=== PATIENT | male | born 1950 | race Caucasian/White ===

== ENCOUNTER → 2019-08-13 09:49 | Outpatient (CLI) | payer MEDICARE, OTHER, SELFPAY ==
[2019-08-13 10:21] LABS: Bacteria Urine None Seen; RBC Urine None Seen (0-5/HPF); WBC Urine None Seen (0-5/HPF)
[2019-08-13 11:23] LABS: Hemoglobin A1C% w Est Avg Glu 5.6 % (4.0-6.0)
[2019-08-13 11:24] LABS: Add Manual Diff / Slide Review NO; Basophils Absolute Auto 100 /uL (0-100); Basophils Percent Auto 0.9 % (0-2); Eosinophils Absolute Auto 200 /uL (0-450); Eosinophils Percent Auto 3.5 % (2-4); Hemoglobin 14.4 g/dL (13.5-17.5); Lymphocytes Absolute Auto 1700 /uL (1100-4500); Lymphocytes Percent Auto 28.7 % (25-40); Mean Corpuscular HGB Conc 34.2 % (30-36); Mean Corpuscular Volume 90.7 fL (80-100); Monocytes Absolute Auto 700 /uL (0-900); Neutrophils Absolute Auto 3300 /uL (1500-7000); Neutrophils Percent Auto 55.9 % (50-75); Platelet Count 253 X10^3/uL (150-400); Red Blood Cell Count 4.63 X10^6/uL (4.5-5.9); Red Cell Distribution Width 12.8 % (11.6-14.8); White Blood Cell Count 5.9 X10^3/uL (4.5-11.0)
[2019-08-13 11:35] LABS: BUN Creatinine Ratio 23.3 (6-22); Blood Urea Nitrogen 21 mg/dL (9-20); Calcium 10.2 mg/dL (8.4-10.2); Carbon Dioxide 29 mmol/L (22-32); Chloride 98 mmol/L (98-107); Estimated Glomerular Filt Rate > 60.0 mL/min (>60); Glucose 124 mg/dL (80-110); HEMOLYSIS < 15 (0-50); Potassium 5.2 mmol/L (3.4-5.1); Sodium 139 mmol/L (137-145)
[2019-08-13 12:10] LABS: Transferrin 313 mg/dL (206-381)
[2019-08-13 12:32] LABS: Appearance Urine UA CLEAR; Bilirubin Urine UA NEGATIVE (NEGATIVE); Color Urine UA YELLOW; Glucose Urine UA NEGATIVE (Negative); Ketones Urine UA NEGATIVE (NEGATIVE); Leukocyte Esterase Urine UA NEGATIVE (NEGATIVE); Nitrite Urine UA NEGATIVE (Negative); Occult Blood Urine UA NEGATIVE (Negative); Protein Urine UA NEGATIVE (Negative); Specific Gravity Urine UA <=1.005 (1.000-1.035); Urobilinogen Urine UA 0.2 E.U./dL (0.2)
[2019-08-13 12:38] LABS: Squamous Epithelial Cell Urine 0-1 /HPF (0-5/HPF)
[2019-08-13 12:39] LABS: Culture Indicated Urine Cult Not Indicated
== END ==
PROVIDERS: PCP Internal Medicine; Referring Provider Orthopaedic Surgery; Visit Provider Orthopaedic Surgery
DX: Z01.818 Encounter for other preprocedural examination (principal); Z01.812 Encounter for preprocedural laboratory examination; R73.9 Hyperglycemia, unspecified; N39.0 Urinary tract infection, site not specified; D64.9 Anemia, unspecified
CPT/HCPCS: 36415; 80048; 81001; 83036; 84466; 85025; 93005

== ENCOUNTER 2019-09-20 08:36 | Day surgery (SDC) | payer MEDICARE, OTHER, SELFPAY ==
[2019-09-14 09:46] VITALS: BMI 29.8
[2019-09-20] VITALS (12 sets, daily range): BP systolic 113–168; BP diastolic 57–90; PULSE 67–88; RESP 10–18; TEMP 36.1–37.1; O2SAT 91–99; BMI 29.8
--- NOTE | 2019-09-20 06:00 | DI.RAD.S_ITS ---
PROCEDURE: XR KNEE RT 1TO2V INDICATIONS: right TKA TECHNIQUE: 2 views of the knee were acquired. COMPARISON: None. FINDINGS: Bones: No fractures or dislocations. No suspicious bony lesions. Status post right total knee arthroplasty. Expected hardware alignment. Soft tissues: Overlying postoperative surgical soft tissue changes. IMPRESSION: Expected postoperative alignment. Dictated by: Justice Mejía M.D. on 09/20/2019 at 16:55 Approved by: Justice Mejía M.D. on 09/20/2019 at 16:56
[2019-09-20] MEDS: CELECOXIB 200 MG CAPSULE PO (09:16)
[2019-09-20] MEDS: ACETAMINOPHEN 325 MG TABLET 975 MG PO (09:16)
[2019-09-20] MEDS: PREGABALIN 75 MG CAPSULE PO (09:16)
[2019-09-20] MEDS: LACTATED RINGERS 1,000 ML 42 ML IV ×2 (09:21→11:21)
--- NOTE | 2019-09-20 09:38 | PM.PREOP ---
Pre-operative Note Interval Note History & Physical reviewed/Exam performed by Physician: Yes Changes to H&P: No
--- NOTE | 2019-09-20 09:38 | PM.OP.1 ---
Operative Date/Time/Diagnoses Date of procedure: 09/20/19 Time of procedure: 12:10 Pre-op diagnosis: Right knee osteoarthritis Post-op diagnosis: same Procedure & Clinicians Procedure: Right total knee replacement Same procedure as scheduled: Yes Indications: The patient has had progressively worsening right knee pain with radiographic changes consistent with arthritis. Non-operative management has failed and the patient has requested total knee replacement. The risks, benefits and alternatives to surgery were discussed with the patient prior to proceeding. Risks discussed included, but were not limited to, failure to relieve pain, stiffness, infection, nerve damage, deep venous thrombosis, pulmonary embolism, stroke, coma, heart attack, permanent paralysis and , as well as the potential need for eventual revision of the prosthetic. Surgeon: Stevie Duncan Router Operator Radial: Saurav Fontenot Click Yes if Unassisted: No Anesthesia Type: Spinal, Sedation and Local Operative Notes Findings: Severe patellofemoral osteoarthritis and moderate medial lateral osteoarthritis Closure Type: primary Specimen(s): none sent Prosthetic devices, grafts, tissues, transplants, or devices: Implants used in this procedure were manufactured by the [employer] and included the BCS II Journey total knee replacement with a size 8 Oxinium femur, a size 7 non porous tibial base plate, a 9 mm cross-linked polyethylene tibial insert and a 38 mm oval Joan II patella Applied: implant(s) Estimated Blood Loss (mL): 50 Blood products transfused: none Tourniquet time (min): 60 Procedure in detail: The patient was seen in the pre-operative area, where the patient identified the right knee as the operative site and this was marked with my initials. The patient received pre-operative antibiotics, and was taken to the operating room and placed on the operative table in the supine position. After satisfactory anesthesia, a encyclopedia research worker out was performed. The right leg was encircled with a tourniquet about the proximal thigh, and the leg was prepared from the toes to the tourniquet with ChloroPrep in the usual fashion and draped through sterile drapes. The leg was elevated and exsanguinated with Eschmark bandage and the tourniquet inflated to 250 mmHg pressure. The knee was approached through an approximately 18 cm incision centered over the patella and carried into the knee through a medial parapatellar arthrotomy. The anterior osteophytes and soft tissues were removed. The rotational landmarks of Pillo's line and the transepicondylar axis were marked on the femur with electrocautery, and intramedullary guide holes for the femur and tibia were created. The distal femoral cut was made in 6 degrees of valgus using the intramedullary guide at the primary cut setting. The proximal tibial cut was then made using the intramedullary guide, taking 9 mm of bone off the less involved side. The extension gap was checked and the rotation of the femoral component confirmed with the gap balancing system. The anterior, posterior and chamfer cuts were then made. The posterior osteophytes and soft tissues were then removed. The posterior capsule was injected with part of a mixture of 60 ml 0.25% Marcaine mixed with 20 ml Exparel and 4 mg of morphine for post-operative pain control. The remainder of this mixture was injected into the capsule and subcutaneous tissues during cement curing. The tibia was prepared with the rotation set by an extra medullary guide. Trial tibial and femoral components were then placed and the intercondylar notch cut through the femoral trial. Range of motion was 0-140 degrees, with good stability throughout the range. The patella was then cut to accommodate the patellar prosthetic. There was appropriate patellar tracking, however the patient had significant lateral wear in the patellofemoral joint preoperatively and a tendency to lateral tilt of the patella so I performed a ?pie crust? lateral release. The trials were then removed, and the femoral hole plugged with a bone plug. The bone was prepared with pulsatile lavage, and dried with a sponge. Cement was applied and the final prosthetics placed. Excess cement was removed during and after cement curing. After confirming there was no extruded cement posteriorly, the final tibial insert was placed. The knee was copiously irrigated and the tourniquet deflated. Hemostasis was obtained. The capsule was closed with interrupted # 2 polyester suture. The subcutaneous layer was closed with 3-0 Vicryl, and the skin with a running 3-0 V-Lock suture and SteriStrips. An Aquacel Ag dressing was applied and the patient was taken to recovery having tolerated the procedure well. Complications: none Post-operative Condition: stable Disposition: PACU Plan for aftercare: The patient will be maintained on a standard total knee replacement protocol with weight bearing as tolerated. The patient will receive aspirin and sequential compression devices for DVT prophylaxis. The patient will be discharged home when safe for the home environment.
[2019-09-20] MEDS: CEFAZOLIN 2 GM/100 ML FROZ.PIGGY IV (10:13)
[2019-09-20] MEDS: TRANEXAMIC ACID 1,000 MG VIAL 2000 MG INJ ×2 (10:38→11:50)
--- NOTE | 2019-09-20 10:49 | SUR.OPER ---
Supine on padded OR bed. Pillow under head, arms secured on padded armboards <90 degree abduction. Safety belt across torso. Non-operative leg secured with tape over blanket over lower leg. Operative leg secured in DeMayo positioner.
[2019-09-20] MEDS: BUPIVACAINE 0.25% W/ EPI 30 ML VIAL 60 ML INJ (10:54)
[2019-09-20] MEDS: MORPHINE 4 MG/ML INJ INJ (10:57)
[2019-09-20] MEDS: BUPIVACAINE LIPOSOME 266 MG/20 ML VIAL INJ (11:30)
--- NOTE | 2019-09-20 12:27 | SUR.PHASEI ---
X-ray here, report given to Jose Carlos West RN. Pt arousing spontaneously, denies pain, nausea.
[2019-09-20] MEDS: LACTATED RINGERS 1,000 ML 125 ML IV (13:22)
[2019-09-20] MEDS: IBUPROFEN 400 MG TABLET PO ×2 (15:36→21:55)
[2019-09-20] MEDS: ACETAMINOPHEN 325 MG TABLET 650 MG PO ×2 (15:36→21:53)
--- NOTE | 2019-09-20 15:58 | PT.IIE ---
Current Diagnoses Unilateral primary osteoarthritis, right knee (09/20/19) Surgery Performed Operation Date: 09/20/19 10:45 Actual Procedures p Total Knee Arthroplasty(Right) - Stevie Duncan MD Surgical History (Last Updated 09/14/19 @ 10:09 by Lee Ann Sun, RN) History of nasal surgery (Acute) Hx of arthroscopy of left knee (Acute) Hx of LASIK (Acute) Hx of repair of left rotator cuff (Acute) Medical History (Last Updated 09/16/19 @ 13:41 by Lee Ann Sun RN) Actinic keratosis (Acute) HTN (hypertension) (Acute) Osteoarthritis (Acute) Skin cancer (Acute) Physical Therapy Inpatient Evaluation/Re-Eval M1 PT/OT-IP Prior Functional Status Start: 09/20/19 13:46 Freq: NEEDED Status: Active Protocol: Document 09/20/19 14:57 AW (Rec: 09/20/19 15:57 AW [id number]) Medical Review Prior Functional Status Medical History Reviewed Yes Diet/Fluid Consistency Regular Communication Pt is an effective verbal communicator Mobility and Gait Independent with all functional mobility. With a knee brace, he could walk without limit, often tracking [phone] steps daily on his Fitbit. Activities of Daily Living and IADL's Independent except for donning socks for which he required his 's assistance Social History Household Members spouse Living Arrangements House Number of Floors (Floors) 3 or More Floors Number of Stairs To Enter/Railing? 4 [place] with left rail ascending . Once inside, he must ascend 8+8 stairs with unilateral rails. Bedroom is upstairs, but pt states he can stay on entry level buyer for a few days if needed. He has no need to access the basement on a regular basis. Home Environment Standard Height Toilet,Walk in Shower,Built-In Shower Seat Home Equipment Front Wheel Walker,Straight Cane,Raised Toilet Seat Without Armrests,Hand Held Shower Employment Status Retired Additional Social History Comment Pt lives with his spouse, Shayna, who is also retired. She is available 27/01 and has no limitations on her ability to help. M2 PT-IP Current Condition Start: 09/20/19 13:46 Freq: NEEDED Status: Active Protocol: Document 09/20/19 14:57 AW (Rec: 09/20/19 15:57 AW [id number]) Physical Therapy Current Condition Current Condition Evaluation Date 09/20/19 Treatment Diagnosis R TKA Onset Date 09/20/19 Weight Bearing Status Weight Bearing Status Weight Bear as Tolerated M3 PT-IP Subjective Start: 09/20/19 13:46 Freq: NEEDED Status: Active Protocol: Document 09/20/19 14:57 AW (Rec: 09/20/19 15:57 AW [id number]) Subjective Physical Therapy Visit Type Type Initial Evaluation Visit Start Time 14:22 Visit Stop Time 14:52 Total Visit Minutes 30 Notes Pt's present throughout evaluation Physical Therapy Visit Comments Patient Comments Pt is willing to participate with PT Patient Goals To go home Therapy Pain Assessment Pain When Pain Assessed At Rest Pain Present Pain Present Denied Pain M4 PT-IP Mobility and Gait Start: 09/20/19 13:46 Freq: NEEDED Status: Active Protocol: Document 09/20/19 14:57 AW (Rec: 09/20/19 15:57 AW [id number]) PT-Bed Mobility Assessment Rolling Type of Rolling Roll to Left Level of Assist Standby Assistance Supine to Sit Supine to Sit Standby Assistance Scooting Scooting to Edge of Bed Standby Assistance Scooting Up and Down in Bed Standby Assistance PT-Transfer Assessment Sit to and From Stand Sit to and from Stand Contact Guard Assistance,1 Person Assistance,Use of Upper Extremities Equipment Transfer Assistive Device Gait Belt,Front Wheeled Walker Orthotic/Prosthetic Devices or Brace: No Transfers Transfer Destination Chair Transfer Technique pt ambulated with fww Transfer Ability Level of Assist Standby Assistance,1 Person Assistance,Use of Upper Extremities Comments Mobility Comments Pt sitting up in bed upon PT arrival with no complaint of pain. He completed supine to sit SBA and sat EOB for MMT without UE support. He stood using the FWW SBA and cues for placement of the right leg. After gait assessment, pt returned to the room and attempted to use the toilet but was unable to void, lacking sensation. He then transferred to the chair SBA. He was positioned in the chair with call light and all needs within reach and his visiting in the room. Gait Assessment Gait Gait Assistance Required: Standby Assistance Distance (Feet) 120 Able to Maintain Weight Bearing Status Yes During Gait Assistive Devices Assistive Device Gait Belt,Front Wheeled Walker Orthotic/Prosthetic Devices or Brace: No Gait Deviations General Gait Pattern Antalgic,Decreased Stride Length,Decreased Feet Clearance,Step-to Gait Comments Gait Comments Pt ambulated 120 feet in the hallway using FWW SBA. He experienced a slight increase in pain during gait but did not increase his weightbearing through the FWW. He was somewhat impulsive, needing cues to keep the walker with him until able to contact the railing on the stairs, for instance. Stair Climbing Assessment Evaluation Level of Assist On Stairs Standby Assistance Devices Stair Climbing Assistive Devices Left Railing,Right Railing Technique/Endurance Stair Climbing Direction Ascend and Descend Stair Climbing Technique Step to Step Number of Steps Climbed 3 Query Text: Stair Climbing Set # Repetitions (reps) 2 Comments Stair Climbing Comments Pt sequenced stair climbing appropriately with mininal need for cues. Used B rails this session. Will need to assess with unilateral rail tomorrow. PT-Balance Assessment Sitting Balance and Reactions Static Sitting Balance Ability Normal Dynamic Sitting Balance Ability Normal Standing Balance and Reactions Static Standing Balance Ability Good Dynamic Standing Balance Ability Good Device Used FWW M5 PT-IP Objective Assessments Start: 09/20/19 13:46 Freq: NEEDED Status: Active Protocol: Document 09/20/19 14:57 AW (Rec: 09/20/19 15:57 AW [id number]) Orientation Orientation/Cognition Level of Alertness Alert Orientation Name,Day of Week,Place, Situation Language Function Ability No Deficits Noted Safety Awareness Decreased Safety Awareness Memory Description No Deficits Noted Comments Pt required cues for focus and safety with FWW during ambulation. Gross Range of Motion Lower Extremity ROM Assessment Right Impaired Strength Lower Extremity Strength Assessment Right Impaired Hip L 4+/5 Knee L 5/5 Ankle L 5/5; R 4/5 Coordination Assessment Gross Coordination Gross Coordination WNL Sensation Assessment Sensation Gross Sensation WNL Comments Sensation Comments Impaired sensation in saddle region at time of evaluation. Muscle Tone Muscle Tone WNL Yes M6 PT-IP Treatment Start: 09/20/19 13:46 Freq: NEEDED Status: Active Protocol: Document 09/20/19 14:57 AW (Rec: 09/20/19 15:57 AW [id number]) Physical Therapy Treatment Exercises Exercises Ankle Pumps,Quad Sets,Heel Slides,Passive Knee Extension Hang Education Education Provided Precautions,Weight Bearing Status,Post-Op Packet,Safety Other Treatments Other Treatment Performed Provided education on role of PT, plan of care, weightbearing status, and safe use of FWW. M7 PT-IP Assessment and Plan Start: 09/20/19 13:46 Freq: NEEDED Status: Active Protocol: Document 09/20/19 14:57 AW (Rec: 09/20/19 15:57 AW [id number]) PT Summary Assessment and Plan Potential Rehabilitation Potential Excellent Status of Condition at Evaluation Evolving Summary Impairments Pain,ROM,Strength,Bed Mobility ,Transfers,Gait,Activity Tolerance Assessment Summary Dylan is a 69 yo man seen for PT evaluation on POD0 following R TKA. He is fully independent with all mobility at baseline. On evaluation, he required SBA for mobility and cues for safety during ambulation with FWW. PT anticipates he will meet the goals of this plan of care and be safe to discharge home with spouse assist and outpatient PT once medically cleared. Pt was advised to continue using FWW at least until first outpatient PT appointment. Goals Bed Mobility Goal Independent Transfer Goal Independent,Front Wheeled Walker Gait Goal Independent,Front Wheel Walker Gait Distance 220 Other Goals - up/down 8 steps with unilateral rail SBA Days to Meet Goals 2 Frequency of Treatment Frequency Of Treatment Twice a Day Treatment Plan Physical Therapy Treatment Plan Bed Mobility Training,Transfer Training,Gait Training, Therapeutic Exercise,Balance Retraining,Post Op Education, Discharge Planning,Hot or Cold Pack,Neuromuscular Re-ed, Coordination Retraining,Manual Therapy Other Recommendations and Next Treatment review ther ex; progress gait Focus distance; assess stair climbing with unilateral rail Recommendations To Nursing Amount of Assist Needed Standby Assistance Discharge Recommendations PT Discharge Recommendations Home with Assistance, Outpatient PT Transportation Needs at Discharge Private Vehicle
--- NOTE | 2019-09-20 16:16 | PC.NURSE ---
Admission Note: Pt admitted from PACU s/p R TKA. Pt denies pain, able to lift R leg off bed, tolerating ambulation. Wound covered with laura-wrap, mild swelling in R quadriceps. Pt denies nausea, tolerating diet. RA, VSS. Call light in reach, pt's skin intact except for surgical incision, next RN will do double nurse verification of skin assessment d/t time constraints on this shift.
[2019-09-20] MEDS: ASPIRIN EC 81 MG TABLET PO (21:54)
[2019-09-20] MEDS: DOCUSATE 100 MG CAPSULE PO (21:54)
[2019-09-21 00:15] VITALS: BP 136/76; PULSE 73; RESP 16; TEMP 36.7; O2SAT 94
[2019-09-21] MEDS: IBUPROFEN 400 MG TABLET PO ×2 (05:09→09:23)
[2019-09-21 05:22] VITALS: BP 134/81; PULSE 68; RESP 16; TEMP 36.5; O2SAT 95
[2019-09-21 05:46] LABS: Hematocrit 34.1 % (41-53); Hemoglobin 11.4 g/dL (13.5-17.5)
--- NOTE | 2019-09-21 06:49 | PM.DS.1 ---
History of Present Illness History of Present Illness Date Patient Seen: 09/21/19 Time Patient Seen: 06:49 Chief complaint: 512[address] Right Total Knee Arthroplasty Narrative: History and physical are contained in the chart in a previously completed note. Please refer to that note for this information. Discharge Providers Provider Date of admission: 09/20/19 08:36 Discharge Date: 09/21/19 Primary care physician: Riley Gordon MD Consults: 09/20/19 13:06 Consult to Discharge Planning Routine Comment: Consult to Physical Therapy Evaluate & Treat Comment: Physician Instructions: postop TKA protocol Discharge provider: Stevie Duncan MD Summary Hospital Course Discharge Diagnosis: 1. Right knee osteoarthritis 2. Mild post hemorrhagic anemia Hospital Course: The patient was admitted to the hospital and taken directly to the operating room on September 20, 2019. He underwent a right total knee replacement without complication. He was walking independently to and from the bathroom with minimal pain on postoperative day 1. It was felt he would be ready for discharge later in the day. Status at Discharge Cognitive/behavioral status at discharge: oriented Functional status at discharge: uses cane/walker Overall status at discharge: patient is progressing back to baseline Time Spent with Patient Time spent: Less than 30 minutes Exam Vital Signs (past 8 hours): - 09/21/19 00:15 09/21/19 05:22 Temperature 98.1 F 97.7 F Pulse Rate 73 68 Respiratory Rate 16 16 Blood Pressure 136/76 134/81 Pulse Oximetry 94 95 Oxygen Delivery Method Room Air Oxygen Flow Rate 0 Narrative Exam Narrative: Right knee wound is dressed with no drainage on the bandage. Calf is soft. Light touch and motion are intact in the right lower extremity. Objective Labs Result Diagrams: 09/21/19 05:05 Labs: Laboratory Results - last 24 hr 09/21/19 05:05 Hgb 11.4 L Hct 34.1 L Discharge Plan Discharge Plan Patient Disposition: Home Discharge orders & Medications Prescriptions: New acetaminophen 325 mg Tablet 650 mg PO TID 30 Days Qty: 180 RF: 0 aspirin 81 mg Tablet,Delayed Release (Dr/Ec) 81 mg PO BID 42 Days Qty: 84 RF: 0 ibuprofen 400 mg Tablet 400 mg PO Q4HR 30 Days RF: 0 oxycodone 5 mg Tablet 5 mg PO Q4H PRN (Reason: Pain, Moderate (4-6)) Qty: 40 RF: 0 hydroxyzine pamoate 25 mg Capsule 25 mg PO Q6HR PRN (Reason: Nausea) Qty: 40 RF: 0 Continued losartan 25 mg Tablet 25 mg PO DAILY RF: 0 Discontinued ibuprofen [Advil] 200 mg Tablet 400 mg PO BID PRN (Reason: Pain) RF: 0 Follow up/Referrals: Riley Gordon MD [Primary Care Provider] - Stevie Duncan MD [Physician] - 2 Weeks Discharge Health Status Multidrug resistant organism: No MDRO Diet/Activity/Treatments Diet: Diet as Tolerated and Regular Activity: You may bear weight as tolerated on your right leg. Cold/Heat Therapy: Apply ice for 15 minutes of every hour as needed to the right knee. Skin/Wound/Dressing Care Report to your healthcare provider any signs of infection, such as:: chills, fever, night sweats, increased pain, unusual drainage and unusual redness Dressing: You may remove the Malcolm wrap 3 days after surgery. You may then shower normally with the deeper dressing in place. Leave the deeper dressing intact until your follow-up 2 weeks after surgery. If the central strip of the deeper dressing becomes saturated with either water or blood, please call the office to have it evaluated. Visit Report/Discharge Packet Instructions: DI for Knee Replacement, DI for Prescription Opioid Use Stand Alone Forms: Surgery Discharge Discharge Data Primary Care Provider: Riley Gordon Quality VTE Deep Vein Thrombosis/Pulmonary Embolism Present on Admission: No
[2019-09-21 08:00] VITALS: BP 146/66; PULSE 75; RESP 16; TEMP 36.5; O2SAT 95
--- NOTE | 2019-09-21 09:09 | CM.DANOTE ---
Addendum entered by Neyda Riggs LPN 09/21/19 14:40: PT confirmed pt did very well and was quite eager for d/c. He did go home earlier today as per plan. Original Note: Discharge Planning/Care Management DCP: assessment: case received, EMR reviewed, d/c to home setting noted from Dr. Duncan. Pt is a 69 year old male who admitted yesterday for a planned R TKA. Admission status: in review: per UR RN Raheel. Payer: Medicare and [employer] Pt has worked with PT and thus far is on track for his plan of home with Debra's supportive assist and OUTPT PT. Is unclear at this time if pt will need more therapy today prior to d/c. P: discuss in Team Rounds and follow prn for any d/c needs that may unfold. CM Discharge Assessment Start: 09/21/19 09:00 Freq: Status: Active Protocol: Document 09/21/19 09:00 ITV (Rec: 09/21/19 09:01 ITV [id number]) Discharge Planning Assessment Advance Directives? Yes Advance Directives on File No History Provided By Medical Record Prior Living Arrangements House Household Members spouse Independent with ADL's Yes Is patient alert and oriented? Yes Review Status In Process Document 09/21/19 09:09 ITV (Rec: 09/21/19 09:09 ITV [id number]) Discharge Planning Assessment Advance Directives? Yes Advance Directives on File No History Provided By Medical Record Prior Living Arrangements House Household Members spouse Independent with ADL's Yes Is patient alert and oriented? Yes Review Status In Process Pre-Anesthesia Assessment Start: 09/14/19 09:46 Freq: Status: Active Protocol: Document 09/14/19 09:46 CAB (Rec: 09/14/19 10:44 CAB [id number]) Pre-Anesthesia Assessment Patient Information Reviewed Via Phone Assessment Assessment Completed With Patient Diagnostic Results BMP/CMP,CBC,EKG,Urinalysis Comment Labs/EKG @ 08/13/19 Primary Care Provider Riley Gordon Seen Specialist in Last 12 Months Yes Specialist Seen Place Change Roof Bolter Primary Language Yoruba Furniture Fabricator Required No Height 182.88 cm Weight 99.79 kg Body Mass Index (BMI) 29.8 Hearing Ability Normal Visual Impairment No Limitations Visual Assist None Dentition Type Teeth, Natural Present,Dental Implants Barriers to Learning None Hx Anesthesia Reactions No Hx Family Anesthesia Reaction No: Pt is adopted Hx Malignant Hyperthermia No Hx Blood Transfusions No Anesthesia Review Requested No alcohol intake current alcohol intake frequency 0-2 drinks per day Smoking Status Never smoker Substance Use Type does not use Pain Present Pain Reported Musculoskeletal Symptoms Abnormal Gait,Difficulty Walking,Joint Pain,Myalgias History of Falling (Recent or History of No ) Patient is completely paralyzed or No completely immobile Mental Status Oriented to own ability Is patient on oxygen? No Does patient have SAGASTUME/SOB No Hx Sleep Apnea No Currently Taking a Beta Manuel No Can You Climb a Flight of Stairs Without Yes SOB Hx Chest Pain No Hx SOB No Hx Syncope or Dizziness No Anti-Coagulant Therapy No Has a Cashier Parking Lot No Cardiac Testing No Hx Pacemaker/ICD No Pacemaker Rep Required? No Cardiac Clearance Received Not Applicable Diet Type At Home Regular dysphagia No Urinary Catheter Present No Hx Urinary Self Catheterization No Diabetes No HgbA1C 5.6 Date 08/13/19 Hx Drug Resistant Organism No Presence of External or Internal Medical No Devices Bentley exposure No Have you had any close contact with No someone diagnosed with NOVEL CORONAVIRUS ? Have you traveled outside the [facility] States in the last 30 days? Comment [place] 08/31-09/09/19 Marital Status Lives With spouse Prior Living Arrangements House Number of Floors (Floors) 3 or More Floors Support System Friend(s),Spouse Does the Patient Have Assistance After Yes Surgery Patient Discharge Plan Description Return Home Comment Pt advised overnight length of stay per surgeon Feels Safe in Current Environment Yes Been Physically Hurt or Threatened By a No Person in Current Environment Do you have thoughts of harming yourself None or others? Are you currently considering suicide? No Do you have a plan to hurt yourself or No Plan others? Do You Have Any Spiritual Beliefs That No May Affect Your HC Choices? Do You Have Any Cultural Practices That No May Affect Your HC Choices? Comment Voodoo Who Can We Speak to About Patient's Care Family, friends Identifying Code for Release of Patient Declines to issue Information Health Care Proxy/Next of Kin Shayna () Health Care Proxy or [phone] Emergency Contact Name Shayna () Emergency Contact or [phone] Advance Directives? Yes Advance Directives on File No Requested Patient Bring Advanced Yes Directives DOS Power of Plumbing Service Technician Yes Power of Plumbing Service Technician Name Shayna () Power of Plumbing Service Technician or [phone] PAC Instructions Durable medical equipment, Medications to take/avoid, Nasal antibiotic,No ETOH/ petroleum product on skin DOS, NPO,Post-op transportation,Pre -surgical wash,Sturdy shoes/ comfortable clothes,Do not bring valuables and remove jewelry
[2019-09-21] MEDS: ACETAMINOPHEN 325 MG TABLET 650 MG PO (09:22)
[2019-09-21 09:23] VITALS: BP 146/66; PULSE 75
[2019-09-21] MEDS: DOCUSATE 100 MG CAPSULE PO (09:23)
[2019-09-21] MEDS: LOSARTAN 25 MG TABLET PO (09:23)
[2019-09-21] MEDS: ASPIRIN EC 81 MG TABLET PO (09:23)
--- NOTE | 2019-09-21 09:46 | PT.IPTN ---
Current Diagnoses Unilateral primary osteoarthritis, right knee (09/20/19) Surgery Performed Operation Date: 09/20/19 10:45 Actual Procedures p Total Knee Arthroplasty(Right) - Stevie Duncan MD Physical Therapy Treatment Note M2 PT-IP Current Condition Start: 09/20/19 13:46 Freq: NEEDED Status: Active Protocol: Document 09/20/19 14:57 AW (Rec: 09/20/19 15:57 AW [id number]) Physical Therapy Current Condition Current Condition Evaluation Date 09/20/19 Treatment Diagnosis R TKA Onset Date 09/20/19 Weight Bearing Status Weight Bearing Status Weight Bear as Tolerated M3 PT-IP Subjective Start: 09/20/19 13:46 Freq: NEEDED Status: Active Protocol: Document 09/21/19 09:46 CLB (Rec: 09/21/19 10:43 CLB [id number]) Subjective Physical Therapy Visit Type Type Treatment Note Visit Start Time 09:46 Visit Stop Time 10:02 Total Visit Minutes 16 Notes Pt's present throughout evaluation Physical Therapy Visit Comments Patient Comments Pt is willing to participate with PT Patient Goals To go home KAVIN Therapy Pain Assessment Pain When Pain Assessed During Mobility Pain Present Pain Present Pain Reported Location right knee Scale Used 1-2/10 during amublation/ stairs Description Tightness M4 PT-IP Mobility and Gait Start: 09/20/19 13:46 Freq: NEEDED Status: Active Protocol: Document 09/21/19 09:46 CLB (Rec: 09/21/19 10:43 CLB [id number]) PT-Transfer Assessment Sit to and From Stand Sit to and from Stand Standby Assistance,Use of Upper Extremities Equipment Transfer Assistive Device Gait Belt,Front Wheeled Walker Orthotic/Prosthetic Devices or Brace: No Transfers Transfer Destination Chair Transfer Technique pt ambulated with fww Transfer Ability Level of Assist Standby Assistance,1 Person Assistance,Use of Upper Extremities Comments Mobility Comments Pt stood from chair SBA and ambulated to stairwell. Pt climbed 16 stairs with left rail and SPC requiring CGA. Pt then ambulated in [place] [facility] ~220ft. Pt used BR with assisting then sat on EOB for seated ther ex. Pt left in room on EOB with and CONSTRUCTION EXECUTIVE present to transport pt to car. Gait Assessment Gait Gait Assistance Required: Standby Assistance Distance (Feet) 220 Able to Maintain Weight Bearing Status Yes During Gait Assistive Devices Assistive Device Gait Belt,Front Wheeled Walker Orthotic/Prosthetic Devices or Brace: No Gait Deviations General Gait Pattern Antalgic,Decreased Stride Length,Decreased Feet Clearance,Step-to Gait Comments Gait Comments Pt ambulated ~220ft w/FWW/SBA. Pt has steady balance with FWW and good safety awareness. Stair Climbing Assessment Evaluation Level of Assist On Stairs Standby Assistance Devices Stair Climbing Assistive Devices Straight Cane,Left Railing Technique/Endurance Stair Climbing Direction Ascend and Descend Stair Climbing Technique Step to Step Number of Steps Climbed 16 Stair Climbing Set # Repetitions (reps) 1 Comments Stair Climbing Comments Pt climbed 16 stairs with CGA using step to step, left rail and SPC in right hand. M5 PT-IP Objective Assessments Start: 09/20/19 13:46 Freq: NEEDED Status: Active Protocol: Document 09/20/19 14:57 AW (Rec: 09/20/19 15:57 AW [id number]) Orientation Orientation/Cognition Level of Alertness Alert Orientation Name,Day of Week,Place, Situation Language Function Ability No Deficits Noted Safety Awareness Decreased Safety Awareness Memory Description No Deficits Noted Comments Pt required cues for focus and safety with FWW during ambulation. Gross Range of Motion Lower Extremity ROM Assessment Right Impaired Strength Lower Extremity Strength Assessment Right Impaired Hip L 4+/5 Knee L 5/5 Ankle L 5/5; R 4/5 Coordination Assessment Gross Coordination Gross Coordination WNL Sensation Assessment Sensation Gross Sensation WNL Comments Sensation Comments Impaired sensation in saddle region at time of evaluation. Muscle Tone Muscle Tone WNL Yes M6 PT-IP Treatment Start: 09/20/19 13:46 Freq: NEEDED Status: Active Protocol: Document 09/21/19 09:46 CLB (Rec: 09/21/19 10:43 CLB [id number]) Physical Therapy Treatment Exercises Exercises Heel Slides Education Education Provided Precautions,Weight Bearing Status,Post-Op Packet,Safety M7 PT-IP Assessment and Plan Start: 09/20/19 13:46 Freq: NEEDED Status: Active Protocol: Document 09/21/19 09:46 CLB (Rec: 09/21/19 10:43 CLB [id number]) PT Summary Assessment and Plan Potential Rehabilitation Potential Excellent Status of Condition at Evaluation Evolving Summary Impairments Pain,ROM,Strength,Bed Mobility ,Transfers,Gait,Activity Tolerance Assessment Summary Pt progressing with all mobility with increased gait distance, transfers and stair climbing. Pt seems able to d/c with assist of when medically stable. Goals Bed Mobility Goal Independent Transfer Goal Independent,Front Wheeled Walker Gait Goal Independent,Front Wheel Walker Gait Distance 220 Other Goals - up/down 8 steps with unilateral rail SBA Days to Meet Goals 2 Frequency of Treatment Frequency Of Treatment Twice a Day Treatment Plan Physical Therapy Treatment Plan Bed Mobility Training,Transfer Training,Gait Training, Therapeutic Exercise,Balance Retraining,Post Op Education, Discharge Planning,Hot or Cold Pack,Neuromuscular Re-ed, Coordination Retraining,Manual Therapy Recommendations To Nursing Amount of Assist Needed Standby Assistance Discharge Recommendations PT Discharge Recommendations Home with Assistance, Outpatient PT Transportation Needs at Discharge Private Vehicle
--- NOTE | 2019-09-21 11:33 | PC.NURSE ---
Discharge Note: Order received to discharge pt home. Pt up and dressed when this RN received assignment. Pt reports discomfort at 07/16. Denies pain otherwise. Given scheduled tylenol and ibuprofen per MD orders. Wound wrapped with laura wrap, some swelling noted in quad proximal from wound. Pt able to ambulate and signed off by PT for discharge home. Pt given discharge instructions on pain, medications, s and s of infection, opioid pain mediation, constipation prevention, mobility, wound care and follow-up. Pt discharged via wheelchair to private vehicle home without incident.
== END 2019-09-21 10:00 | disposition home or self-care (01) ==
LOC: AC 09-21 11:38 → OR 09-21 12:39
PROVIDERS: PCP Internal Medicine; Referring Provider Orthopaedic Surgery; Visit Provider Orthopaedic Surgery
PROC: 0SRC0JZ Replacement of Right Knee Joint with Synthetic Substitute, Open Approach (ICD-10-PCS; CPT 27447; principal; 2019-09-20 10:45)
DX: M17.11 Unilateral primary osteoarthritis, right knee (principal); I10 Essential (primary) hypertension; M21.961 Unspecified acquired deformity of right lower leg; M25.761 Osteophyte, right knee
CPT/HCPCS: 27447; 36415; 73560; 85014; 85018; 94762; 97110; 97116; 97161; C1776; C9290; J0690; J1100; J2250; J2270; J2274; J2405; J2704; J3010

== ENCOUNTER → 2020-03-10 11:59 | Outpatient (CLI) | payer MEDICARE, OTHER, SELFPAY ==
[2019-09-20 13:23] VITALS: BMI 29.8
[2020-03-10 14:05] LABS: Add Manual Diff / Slide Review NO; Basophils Absolute Auto 100 /uL (0-100); Basophils Percent Auto 1.1 % (0-2); Eosinophils Absolute Auto 100 /uL (0-450); Eosinophils Percent Auto 1.9 % (2-4); Hematocrit 39.6 % (41-53); Hemoglobin 13.2 g/dL (13.5-17.5); Lymphocytes Absolute Auto 1400 /uL (1100-4500); Lymphocytes Percent Auto 20.9 % (25-40); Mean Corpuscular HGB Conc 33.4 % (30-36); Mean Corpuscular Hemoglobin 30.5 PG (26-34); Mean Corpuscular Volume 91.2 fL (80-100); Monocytes Absolute Auto 600 /uL (0-900); Monocytes Percent Auto 9.8 % (3-14); Neutrophils Absolute Auto 4300 /uL (1500-7000); Neutrophils Percent Auto 66.3 % (50-75); Platelet Count 252 X10^3/uL (150-400); Red Blood Cell Count 4.34 X10^6/uL (4.5-5.9); Red Cell Distribution Width 14.5 % (11.6-14.8); White Blood Cell Count 6.5 X10^3/uL (4.5-11.0)
[2020-03-10 14:16] LABS: Hemoglobin A1C% w Est Avg Glu 5.5 % (4.0-6.0)
[2020-03-10 15:01] LABS: BUN Creatinine Ratio 22.1 (6-22); Blood Urea Nitrogen 21 mg/dL (9-20); Calcium 9.9 mg/dL (8.4-10.2); Carbon Dioxide 30 mmol/L (22-32); Chloride 102 mmol/L (98-107); Estimated Glomerular Filt Rate > 60.0 mL/min (>60); Glucose 91 mg/dL (80-110); HEMOLYSIS < 15 (0-50); Potassium 4.6 mmol/L (3.4-5.1); Sodium 140 mmol/L (137-145)
== END ==
PROVIDERS: PCP Internal Medicine; Referring Provider Orthopaedic Surgery Adult Reconstructive Orthopaedic Surgery; Visit Provider Orthopaedic Surgery Adult Reconstructive Orthopaedic Surgery
DX: Z01.818 Encounter for other preprocedural examination (principal); Z01.812 Encounter for preprocedural laboratory examination; R73.9 Hyperglycemia, unspecified
CPT/HCPCS: 36415; 80048; 83036; 85025; 93005

== ENCOUNTER → 2020-03-21 09:57 | Outpatient (CLI) | payer MEDICARE, OTHER, SELFPAY ==
[2019-09-20 13:23] VITALS: BMI 29.8
[2020-03-22 20:23] LABS: COVID19 Sendout Not Detected (Not Detect)
== END ==
PROVIDERS: PCP Internal Medicine; Visit Provider Physician Assistant
DX: Z11.59 Encounter for screening for other viral diseases (principal)
CPT/HCPCS: 87635

== ENCOUNTER 2020-03-24 06:06 | Day surgery (SDC) | payer MEDICARE, OTHER, SELFPAY ==
[2019-09-20 13:23] VITALS: BMI 29.8
[2020-03-16 08:44] VITALS: BMI 28.7
[2020-03-24] VITALS (15 sets, daily range): BP systolic 97–155; BP diastolic 55–88; PULSE 65–99; RESP 11–17; TEMP 35.8–36.8; O2SAT 95–100; BMI 28.6
--- NOTE | 2020-03-24 | DI.RAD.S_ITS ---
PROCEDURE: XR HIP RT 1V INDICATIONS: TOTAL HIP R TECHNIQUE: Single intraoperative spot view of the right hip. COMPARISON: [facility], CR, XR PELVIS WITH LATERAL HIP RIGHT, 01/28/2020, 11:18. FINDINGS: Bones: Patient is status post right hip arthroplasty, with hardware components in expected positions. The hip joint appears congruent. The visualized bony structures appear intact. Soft tissues: Overlying postoperative changes are noted. No suspicious soft tissue densities. IMPRESSION: Status post right total hip arthroplasty with expected of postoperative findings. Dictated by: Miky Harkins M.D. on 03/24/2020 at 10:04 Approved by: Miky Harkins M.D. on 03/24/2020 at 10:05
--- NOTE | 2020-03-24 06:00 | DI.RAD.S_ITS ---
PROCEDURE: XR PELVIS 1-2V INDICATIONS: post op films TECHNIQUE: 1 view of the lower pelvis acquired. COMPARISON: [facility], CR, XR HIP RT 1V, 03/24/2020, 9:00. FINDINGS: Bones: Patient is status post right total hip arthroplasty, with hardware components in expected positions. The hip joint appears congruent. The visualized bony structures appear intact. Soft tissues: Overlying postoperative changes are noted. No suspicious soft tissue densities. IMPRESSION: Status post right total hip arthroplasty with expected postoperative changes. Dictated by: Miky Harkins M.D. on 03/24/2020 at 10:46 Approved by: Miky Harkins M.D. on 03/24/2020 at 10:47
[2020-03-24] MEDS: ACETAMINOPHEN 325 MG TABLET 975 MG PO (06:50)
[2020-03-24] MEDS: PREGABALIN 75 MG CAPSULE PO (06:50)
[2020-03-24] MEDS: CELECOXIB 200 MG CAPSULE PO (06:50)
[2020-03-24] MEDS: LACTATED RINGERS 1,000 ML 42 ML IV ×2 (07:00→09:51)
--- NOTE | 2020-03-24 07:44 | PM.PREOP ---
Pre-operative Note COVID-19 COVID-19 status: Negative Result date/Date tested (Pos, Neg/Pending): 03/21/20 Interval Note History & Physical reviewed/Exam performed by Physician: Yes Changes to H&P: No H&P completed within 30 days and has changed as indicated here:: Pre-op labs and EKG reviewed. Plan for right anterior TOYA.
[2020-03-24] MEDS: CEFAZOLIN 2 GM/100 ML FROZ.PIGGY IV ×3 (07:45→23:41)
[2020-03-24] MEDS: TRANEXAMIC ACID 1,000 MG VIAL 1000 MG INJ (08:19)
--- NOTE | 2020-03-24 08:27 | SUR.OPER ---
Supine on padded [place] table with bilateral legs secured in padded positioning boots and suspended in positioning spars, operative leg in traction per surgeon. Head on one pillow. Arm on non-operative side secured on padded armboard <90 degrees abduction. Arm on operative side padded and resting across chest then secured with tape over sheet. Padded perineal post in place per surgeon.
[2020-03-24] MEDS: KETOROLAC 30 MG/ML VIAL IV (08:34)
[2020-03-24] MEDS: MORPHINE 4 MG/ML INJ INJ (08:35)
[2020-03-24] MEDS: ROPIVACAINE 0.5% PF 5 MG/ML 20ML VIAL 60 ML INJ (08:35)
[2020-03-24] MEDS: SODIUM CHLORIDE IRRIG SOLUTION 250 ML, POVIDONE-IODINE SPONGE STICKS 1 APPLIC IRR (08:38)
--- NOTE | 2020-03-24 09:58 | PM.OP.1 ---
Operative Date/Time/Diagnoses Date of procedure: 03/24/20 Time of procedure: 09:58 Pre-op diagnosis: right hip OA Post-op diagnosis: same Procedure & Clinicians Procedure: right anterior total hip arthroplasty Same procedure as scheduled: Yes Indications: right hip osteoarthritis resistant to continued conservative meaesures Surgeon: Tre Howard Set Making Machine Operator: Saurav Fontenot Anesthesia Type: General and Spinal Operative Notes Findings: right hip OA with loss of cartilage at the weight bearing surface and head and neck osteophytes Closure Type: primary Specimen(s): none sent Prosthetic devices, grafts, tissues, transplants, or devices: [employer]hew R3 56 mm cup 56 x 36 mm neutral polyethylene liner 1x 20 mm screw 1x 25 mm screw Anthology size 10 high offset stem Oxinium 36-3 head Estimated Blood Loss (mL): 200 Blood products transfused: none Procedure in detail: Patient was met in the preoperative holding area where the site and side of surgery were marked by . Informed consent had been signed in clinic but was reviewed again in the preoperative holding area. The risks and benefits of surgery were reviewed with the patient and he demonstrated understanding of the risks and benefits and wishes to proceed. Patient is brought back into the operating room where he received a spinal anesthetic. He was then transferred onto the [place] table and induced under general anesthesia. Bilateral feet were well padded and placed in [place] table boots. The right hip was then prepped and draped in normal sterile fashion. A surgical time-out was performed verifying the site and side of surgery as well as the name of the patient. A 7 cm long incision based proximally 2 cm distal and 1 cm lateral to the ASIS aiming towards the fibular head was made the skin using 10. Blade. Electrocautery was used down to the level of the tensor fascia. A new 10. Blade was then used to incise the tensor fascia in line length that the fibers. A Allis clamp was placed on the medial leaflet of the tensor fascia and the tensor was then retracted laterally. A Meyerding retractor was then placed deeper retracting the rectus femoris medially. A Cobra was then placed over the superior neck. This gave us good exposure to the ascending circumflex vessels. These were then coagulated using electrocautery. A 2nd cobra retractor was then placed underneath the inferior aspect of the femoral neck. The Meyerding retractor was then removed and a bent Hohmann was placed over the superior wall the acetabulum giving us good exposure to the capsule. An inverted T-shaped capsulotomy was then performed the superior and inferior leaflets were tagged with a FiberWire suture and the cobras were then replaced intracapsularly. This gave us good exposure to the femoral neck and I used a reciprocating saw to make the femoral neck cut based off our preoperative templated films. The femur was then externally rotated 45? and a corkscrew was then removed used to remove the femoral head. At this point a soft tissue protector sleeve was introduced into the wound and retractors were then replaced a 1 bent Hohmann over the anterior wall and 1 over the posterior wall electrocautery dissection was used to remove the labrum as well as the pulvinar. We then began reaming with a 46 mm Reamer based off our time preoperative template. This was used to medialized and then we began up sizing by a 2 mm at a time until we got to the 52 mm Reamer. At this point x-ray was brought in and the inlet outlet view was matched to the preoperative standing template film and we finished reaming under fluoroscopic guidance. A size 54 we start getting good resistance I then up sized by 1-55 mm Reamer again had good resistance and selected the 56 mm 3 hole R3 cup. This was then malleted into place under fluoroscopic guidance and 2 screws were then placed. A 56 x 36 mm neutral polyethylene liner was then selected and malleted into place. Verifying all tabs were flush with the acetabular cup. We then turned our attention to the femoral side femoral elevator hook was placed underneath the femur femur was then externally rotated to 110?. The hip was then extended to the floor and adducted. A bent Hohmann was placed over the superior aspect of the superior leaflet of the capsule this was then released off the inside aspect of the greater trochanter neck giving us exposure to the short external rotators. These were then were released partially to give good exposure to the femur. A canal francis was then used followed by raul ford followed by size 1 femoral stem up sizing by ones to a size 7. Then calcar planed off the size 7 stem a high offset trial neck was then selected a 36+ 0 head was selected. Hip was then reduced and found to be stable with 110? of external rotation as well as 90? of external rotation and extension to the floor. The hip was then brought back into neutral rotation. X-ray was taken verifying appropriate leg lengths however on view of the femoral stem stem was in varus. The hip was then dislocated the femoral trial components were removed and a downsized to a size 6 stem and began lateralizing more to correct our varus. Eventually was able hip to a size 10 high offset stem which corrected our varus. Trial components were then placed again and reduced this time with a -3 head which appeared appropriate for leg length. Hip was then dislocated a final time trial components were removed and a size 10 high offset anthology stem with a 36-3 Oxinium head was selected. These were then placed and hip was reduced a final time. X-rays were taken. The wound was then thoroughly irrigated with Betadine solution which was allowed to sit for several minutes this was then irrigated with copious normal saline and her local anesthetic was then injected into the capsule and the tensor muscle. The capsulotomy was then repaired using a running Ethibond suture entered FiberWire tag sutures were removed. The tensor fascia was then repaired using 1. Vicryl in a running locking fashion followed by 2 Vicryl in the subcutaneous layer followed by 3 0 strata fix Dermabond and an Aquacel dressing. Complications: none Post-operative Condition: stable Disposition: PACU Plan for aftercare: 24 hours post-op abx, WBAT RLE, ASA 81mg BID for 6 weeks
[2020-03-24] MEDS: LACTATED RINGERS 1,000 ML 125 ML IV ×2 (11:45→20:27)
--- NOTE | 2020-03-24 12:00 | PC.NURSE ---
Day Shift- report rec'd from MEHRAN Simmons in PACU at 1055. Pt arrived to unit at 1105 via bed to room 211. Pt's Shayna at bedside as well, aware of visitor policy and to wear a mask at all times during visit. Pt states right hip pain 2/10 dull aching. Pain management plan discussed, states he prefers no narcotics, states when he had his right knee surgery he had minimal narcotic use. Denies any numbness or tingling, his buttocks was previously feeling numb. PPP, no peripheral edema noted. Right anterior hip surgical incision covered with CDI Aquacel dressing. IVF started per order. Pt oriented to bed functions, admit folder, call light. Water, apple juice, and lunch tray given. No other voiced concerns. pt stated there was a possibility of discharging home later today is he passes PT session. Pt does have 5 steps into the home and bedroom is on the second floor. there is a pullout sofa available on the first level if needed.
[2020-03-24] MEDS: ACETAMINOPHEN 325 MG TABLET 650 MG PO ×2 (14:14→20:33)
--- NOTE | 2020-03-24 15:21 | PT.IIE ---
Current Diagnoses Unilateral primary osteoarthritis, right hip (03/24/20) Surgery Performed Operation Date: 03/24/20 07:45 Actual Procedures p Total Hip Arthroplasty/Anterior Approach(Right) - Tre Howard MD Surgical History (Last Updated 03/16/20 @ 09:01 by Lee Ann Sun, RN) History of arthroplasty of right knee (Acute 09/20/19) History of nasal surgery (Acute) Hx of arthroscopy of left knee (Acute) Hx of LASIK (Acute) Hx of repair of left rotator cuff (Acute) Medical History (Last Updated 09/16/19 @ 13:41 by Lee Ann Sun RN) Actinic keratosis (Acute) HTN (hypertension) (Acute) Osteoarthritis (Acute) Skin cancer (Acute) Physical Therapy Inpatient Evaluation/Re-Eval M1 PT/OT-IP Prior Functional Status Start: 03/24/20 11:32 Freq: NEEDED Status: Active Protocol: Document 03/24/20 14:58 HH (Rec: 03/24/20 15:20 [email or web address]) Medical Review Prior Functional Status Medical History Reviewed Yes Diet/Fluid Consistency Regular Communication no deficits noted. Mobility and Gait SPC at all times. able to amb upto a mile with SPC. difficulty bending over to pick things up. Pt used to amb with IR R hip. Activities of Daily Living and IADL's unable to erick socks on R side . independent for other ADLs with SPC. assisted IADLs if needed Social History Household Members spouse Living Arrangements House Number of Floors (Floors) 3 or More Floors Number of Stairs To Enter/Railing? 5 DICKSON to front entrance with B wide rails 5 DICKSON with L rail and wall support for garage entrance ( pt preference) bedroom and bathroom on second floor (14 steps in total, 7 with L rail + landing + 7 with R rail) Home Environment Standard Height Toilet Home Equipment Front Wheel Walker,Straight Cane,Hand Held Shower Employment Status Retired Additional Social History Comment Pt lives with in [place] who is active and independent and able to assist as needed. Pt had a R TKA in September this year and d/c home on the second day and participated PT at [facility]. M2 PT-IP Current Condition Start: 03/24/20 11:32 Freq: NEEDED Status: Active Protocol: Document 03/24/20 14:58 HH (Rec: 03/24/20 15:20 [email or web address]) Physical Therapy Current Condition Current Condition Evaluation Date 03/24/20 Treatment Diagnosis R TOYA (ant), difficulty in walking Onset Date 03/24/20 Precautions Anterior Hip Precautions No Hip Extension,No Hip External Rotation Weight Bearing Status Weight Bearing Status Weight Bear as Tolerated M3 PT-IP Subjective Start: 03/24/20 11:32 Freq: NEEDED Status: Active Protocol: Document 03/24/20 14:58 (Rec: 03/24/20 15:20 [email or web address]) Subjective Physical Therapy Visit Type Type Initial Evaluation Visit Start Time 13:16 Visit Stop Time 13:48 Total Visit Minutes 32 Notes attended session Number of BROACH GRINDER Visits 0 Physical Therapy Visit Comments Patient Comments I am ready to get up Patient Goals to return home with . Therapy Pain Assessment Pain When Pain Assessed During Mobility Pain Present Pain Present Pain Reported Location Right Hip Intensity 2 Scale Used Numeric (0 - 10) Description Aching,With Movement Pain Management Techniques Timing of Activity with Medications M4 PT-IP Mobility and Gait Start: 03/24/20 11:32 Freq: NEEDED Status: Active Protocol: Document 03/24/20 14:58 (Rec: 03/24/20 15:20 [email or web address]) PT-Bed Mobility Assessment Supine to Sit Supine to Sit Standby Assistance Sit to Supine Sit to Supine Standby Assistance PT-Transfer Assessment Sit to and From Stand Sit to and from Stand Standby Assistance,Contact Guard Assistance,Use of Upper Extremities Equipment Transfer Assistive Device Gait Belt,Front Wheeled Walker Orthotic/Prosthetic Devices or Brace: No Transfers Transfer Destination Bed,Chair,Toilet Transfer Technique Stand Step Pivot Transfer Ability Level of Assist Standby Assistance,Contact Guard Assistance,Use of Upper Extremities Comments Mobility Comments Pt was in bed upon PT arrival with at bedside. pain 2/ 10 and minimal discomfort. Pt was able to sit up and pivot his R LE to R EOB SBA. Pt scooted forward and completed sit to stand with FWW SBA/CGA. Pt has a flexed posture with internal rotated R hip. Pt then walked to bathroom with step to gait. However, pt did not void but he was able to maintain standing without support but supervision. Pt then walked to hallway and completed 1 lap of Spotsetter with FWW SBA/ CGA. He did amb with an antalgic gait and knee valgust motion during RLE stance phase. Needed cues for proper mechanics and alignment. He went back to his room and transferred to bedside chair with proper handplacements and safe descend. He c/o slight lightheadiness with BP 121/80 HR 100. No increase in pain noted. Call light and post op booklet placed within reach. Gait Assessment Gait Gait Assistance Required: Standby Assistance,Contact Guard Assist Distance (Feet) 220 Able to Maintain Weight Bearing Status Yes During Gait Assistive Devices Assistive Device Gait Belt,Front Wheeled Walker Orthotic/Prosthetic Devices or Brace: No Gait Deviations General Gait Pattern Antalgic,Decreased Stride Length,Decreased Feet Clearance,Flexed Trunk,Step-to Gait Factors Limiting Gait Function Factors Limiting Gait Function Decreased Activity Tolerance, Decreased Strength,Limited Range of Motion,Pain,Poor Balance Comments Gait Comments see mobility comment Stair Climbing Assessment Comments Stair Climbing Comments did not assess PT-Balance Assessment Sitting Balance and Reactions Static Sitting Balance Ability Normal Dynamic Sitting Balance Ability Normal Standing Balance and Reactions Static Standing Balance Ability Good Dynamic Standing Balance Ability Good Device Used FWW M5 PT-IP Objective Assessments Start: 03/24/20 11:32 Freq: NEEDED Status: Active Protocol: Document 03/24/20 14:58 (Rec: 03/24/20 15:20 [email or web address]) Orientation Orientation/Cognition Level of Alertness Alert Orientation Name,Age,Birthday,Month,Date, Year,Day of Week,Place, Situation Language Function Ability No Deficits Noted Safety Awareness Understands Safety Issues Memory Description No Deficits Noted Gross Range of Motion Upper Extremity ROM Assessment Within Functional Limits Lower Extremity ROM Assessment Left Impaired Impairments pt tends to internal rotated his R hip in sitting/ standing position Strength Upper Extremity Strength Assessment Within Functional Limits Lower Extremity Strength Assessment Right Impaired Hip 3+/5 Knee 4-/5 Coordination Assessment Gross Coordination Gross Coordination WNL Sensation Assessment Sensation Gross Sensation WNL Muscle Tone Muscle Tone WNL Yes M6 PT-IP Treatment Start: 03/24/20 11:32 Freq: NEEDED Status: Active Protocol: Document 03/24/20 14:58 (Rec: 03/24/20 15:20 [email or web address]) Physical Therapy Treatment Exercises Exercises Gluteal Sets,Quad Sets Education Education Provided Precautions,Weight Bearing Status,Post-Op Packet,Safety M7 PT-IP Assessment and Plan Start: 03/24/20 11:32 Freq: NEEDED Status: Active Protocol: Document 03/24/20 14:58 (Rec: 03/24/20 15:20 [email or web address]) PT Summary Assessment and Plan Potential Rehabilitation Potential Excellent Status of Condition at Evaluation Stable Summary Impairments Pain,ROM,Strength,Balance,Bed Mobility,Transfers,Gait, Activity Tolerance Assessment Summary This is a low complexity evaluation for this 70 yo male s/p POD0 R TOYA (anterior approach). Pt has good understanding with post op precautions and good safety awareness d/t his recent RTKA. Pt was mobilizing with SPC at all times as PLOF. Upon assessment, pt completed 220 ft with FWW SBA/CGA with antalgic gait. He did need cues for proper RLE alignement and gait mechanics. He did c/ o slight lightheadiness at the end of session but BP was stable. Expect him to d/c home with assistance and participate outpatient PT once he completes stair climbing. Goals Bed Mobility Goal Standby Assistance Transfer Goal Standby Assistance,Front Wheeled Walker Gait Goal Standby Assistance,Front Wheel Walker Gait Distance 300 Other Goals 5 DICKSON with L rail, might need SPC on R Days to Meet Goals 2 Frequency of Treatment Frequency Of Treatment Twice a Day Treatment Plan Physical Therapy Treatment Plan Bed Mobility Training,Transfer Training,Gait Training, Therapeutic Exercise,Balance Retraining,Post Op Education, Discharge Planning,Hot or Cold Pack,Neuromuscular Re-ed Other Recommendations and Next Treatment mobility as maría Focus 5 DICKSON with L rail 14 steps in total, 7 with L rail + landing + 7 with R rail (2nd floor) Recommendations To Nursing Amount of Assist Needed Standby Assistance Discharge Recommendations PT Discharge Recommendations Home with Assistance, Outpatient PT Transportation Needs at Discharge Private Vehicle
[2020-03-24 15:53] LABS: Add Manual Diff / Slide Review NO; Basophils Absolute Auto 0 /uL (0-100); Basophils Percent Auto 0.1 % (0-2); Eosinophils Absolute Auto 0 /uL (0-450); Eosinophils Percent Auto 0.1 % (2-4); Hematocrit 36.1 % (41-53); Hemoglobin 12.1 g/dL (13.5-17.5); Lymphocytes Absolute Auto 500 /uL (1100-4500); Lymphocytes Percent Auto 3.7 % (25-40); Mean Corpuscular HGB Conc 33.5 % (30-36); Mean Corpuscular Volume 92.4 fL (80-100); Monocytes Absolute Auto 900 /uL (0-900); Monocytes Percent Auto 6.4 % (3-14); Neutrophils Absolute Auto 12800 /uL (1500-7000); Neutrophils Percent Auto 89.7 % (50-75); Platelet Count 204 X10^3/uL (150-400); Red Blood Cell Count 3.91 X10^6/uL (4.5-5.9); Red Cell Distribution Width 13.7 % (11.6-14.8); White Blood Cell Count 14.2 X10^3/uL (4.5-11.0)
[2020-03-24] MEDS: ZOLPIDEM 5 MG TABLET PO (20:25)
[2020-03-24] MEDS: ASPIRIN EC 81 MG TABLET PO (20:25)
--- NOTE | 2020-03-24 22:30 | PC.NURSE ---
Pt is A and O x 4, VSS. WBC slightly elevated 14.2. Pt is highly motivated to discharge and has been ambulating in hallways, using IS and taking only APAP for pain which he rates at 2/10. Aquacell dressing is c/d/i/ Pt uses his own cane.
[2020-03-25 03:35] VITALS: BP 153/76; PULSE 72; RESP 16; TEMP 36.2; O2SAT 97
[2020-03-25] MEDS: ACETAMINOPHEN 325 MG TABLET 650 MG PO (05:06)
[2020-03-25 06:37] LABS: Hematocrit 29.7 % (41-53); Hemoglobin 10.1 g/dL (13.5-17.5)
[2020-03-25 07:45] VITALS: BP 135/80; PULSE 71; RESP 16; TEMP 36.1; O2SAT 98
[2020-03-25 08:35] VITALS: BP 135/80; PULSE 71
[2020-03-25] MEDS: ASPIRIN EC 81 MG TABLET PO (08:35)
[2020-03-25] MEDS: DOCUSATE 100 MG CAPSULE PO (08:35)
[2020-03-25] MEDS: LOSARTAN 25 MG TABLET 50 MG PO (08:35)
[2020-03-25] MEDS: SODIUM CHLORIDE 0.9% FLUSH 10 ML IV (08:35)
--- NOTE | 2020-03-25 08:40 | P.PN_ITS ---
Subjective Subjective Date Patient Seen: 03/25/20 Time Patient Seen: 08:40 Interval history: Patient is POD #1 s/p right TOYA with Dr. Howard. Patient doing well, minimal pain controlled with Tylenol. Ambulating well with PT, pending stairs. Voiding appropriately and tolerating a diet. No chest pain or shortness of breath. Exam Vital Signs (past 8 hours): - 03/25/20 03:35 03/25/20 08:35 Temperature 97.1 F L Pulse Rate 72 71 Respiratory Rate 16 Blood Pressure 153/76 H 135/80 Pulse Oximetry 97 Oxygen Delivery Method Room Air Oxygen Flow Rate 0 Narrative Exam Narrative: 70 year old male mobilizing about the room well during exam. AAOx3. Aquacel dressing over right hip is CDI. Patient able to perform straight leg raise. Calves soft, compressible. Objective Labs Result Diagrams: 03/25/20 05:36 Labs: Laboratory Results - last 24 hr 03/24/20 03/25/20 15:12 05:36 WBC 14.2 H RBC 3.91 L Hgb 12.1 L 10.1 L Hct 36.1 L 29.7 L MCV 92.4 MCH 31.0 MCHC 33.5 RDW 13.7 Plt Count 204 Neut % (Auto) 89.7 H Lymph % (Auto) 3.7 L [place] % (Auto) 6.4 Eos % (Auto) 0.1 L Baso % (Auto) 0.1 Neut # (Auto) 93493 H Lymph # (Auto) 500 L [place] # (Auto) 900 Eos # (Auto) 0 Baso # (Auto) 0 Assessment & Plan Assessment & Plan narrative: Patient doing well postoperatively. Continue ASA 81mg for DVT prophylaxis. Scripts for Oxycodone and Docusate provided in case pain worsens after discharge. Pending stairs with PT, otherwise discharge to home later today. Quality VTE Deep Vein Thrombosis/Pulmonary Embolism Present on Admission: No
--- NOTE | 2020-03-25 09:15 | PT.IPTN ---
Current Diagnoses Unilateral primary osteoarthritis, right hip (03/24/20) Surgery Performed Operation Date: 03/24/20 07:45 Actual Procedures p Total Hip Arthroplasty/Anterior Approach(Right) - Tre Howard MD Physical Therapy Treatment Note M2 PT-IP Current Condition Start: 03/24/20 11:32 Freq: NEEDED Status: Active Protocol: Document 03/24/20 14:58 HH (Rec: 03/24/20 15:20 HH [email or web address]) Physical Therapy Current Condition Current Condition Evaluation Date 03/24/20 Treatment Diagnosis R TOYA (ant), difficulty in walking Onset Date 03/24/20 Precautions Anterior Hip Precautions No Hip Extension,No Hip External Rotation Weight Bearing Status Weight Bearing Status Weight Bear as Tolerated M3 PT-IP Subjective Start: 03/24/20 11:32 Freq: NEEDED Status: Active Protocol: Document 03/25/20 08:39 LJ (Rec: 03/25/20 09:15 LJ [id number]) Subjective Physical Therapy Visit Type Type Treatment Note Visit Start Time 08:39 Visit Stop Time 08:53 Total Visit Minutes 14 Notes attended session Number of STAFF RN Visits 1 Physical Therapy Visit Comments Patient Goals to return home with . Therapy Pain Assessment Pain When Pain Assessed During Mobility Pain Present Pain Present Pain Reported M4 PT-IP Mobility and Gait Start: 03/24/20 11:32 Freq: NEEDED Status: Active Protocol: Document 03/25/20 08:39 LJ (Rec: 03/25/20 09:15 LJ [id number]) PT-Transfer Assessment Sit to and From Stand Sit to and from Stand Standby Assistance,Use of Upper Extremities Equipment Transfer Assistive Device Gait Belt,Front Wheeled Walker Orthotic/Prosthetic Devices or Brace: No Transfers Transfer Destination Chair Transfer Technique ambulated using FWW Transfer Ability Level of Assist Standby Assistance,Use of Upper Extremities Comments Mobility Comments Pt in chair receiving meds from nurse. Eager to discharge . Pt stood from chair pushing off with UEs then ambulated to door using FWW. Required cues to straighten torso and hold FWW closer to body. He needed cues to slow down and correct gait mechanics of which he is aware. Right knee has with valgus but pt aware and able to attempt correction when moving slower. Pt performed stairs and returned to room with following. Gait Assessment Gait Gait Assistance Required: Standby Assistance Distance (Feet) 150 Assistive Devices Assistive Device Gait Belt,Front Wheeled Walker Orthotic/Prosthetic Devices or Brace: No Gait Deviations General Gait Pattern Antalgic,Decreased Stride Length,Decreased Feet Clearance,Flexed Trunk Factors Limiting Gait Function Factors Limiting Gait Function Decreased Activity Tolerance, Decreased Strength,Limited Range of Motion,Pain,Poor Balance Comments Gait Comments see mobility comment Stair Climbing Assessment Evaluation Level of Assist On Stairs Standby Assistance Devices Stair Climbing Assistive Devices Straight Cane,Left Railing Technique/Endurance Stair Climbing Direction Ascend and Descend Stair Climbing Technique Step to Step Number of Steps Climbed 3 Stair Climbing Set # Repetitions (reps) 2 Comments Stair Climbing Comments Pt used SPC in right hand and rail on left. Able to ascend using left leg first going up and right leg first going down . Pt needed verbal correction to reduce valgus on right leg during step up phase with left leg. M5 PT-IP Objective Assessments Start: 03/24/20 11:32 Freq: NEEDED Status: Active Protocol: Document 03/24/20 14:58 HH (Rec: 03/24/20 15:20 [email or web address]) Orientation Orientation/Cognition Level of Alertness Alert Orientation Name,Age,Birthday,Month,Date, Year,Day of Week,Place, Situation Language Function Ability No Deficits Noted Safety Awareness Understands Safety Issues Memory Description No Deficits Noted Gross Range of Motion Upper Extremity ROM Assessment Within Functional Limits Lower Extremity ROM Assessment Left Impaired Impairments pt tends to internal rotated his R hip in sitting/ standing position Strength Upper Extremity Strength Assessment Within Functional Limits Lower Extremity Strength Assessment Right Impaired Hip 3+/5 Knee 4-/5 Coordination Assessment Gross Coordination Gross Coordination WNL Sensation Assessment Sensation Gross Sensation WNL Muscle Tone Muscle Tone WNL Yes M6 PT-IP Treatment Start: 03/24/20 11:32 Freq: NEEDED Status: Active Protocol: Document 03/25/20 08:39 LJ (Rec: 03/25/20 09:15 LJ [id number]) Physical Therapy Treatment Exercises Exercises Gluteal Sets,Quad Sets Education Education Provided Precautions,Safety M7 PT-IP Assessment and Plan Start: 03/24/20 11:32 Freq: NEEDED Status: Active Protocol: Document 03/25/20 08:39 LJ (Rec: 03/25/20 09:15 LJ [id number]) PT Summary Assessment and Plan Potential Rehabilitation Potential Excellent Status of Condition at Evaluation Stable Summary Progress Towards Goals Safe For Discharge Assessment Summary Pt has met goals for ambulation and stairs. He demonstrated good understanding and compliance with precautions. He is aware of right knee valgus and will address it in OP PT which he has set up Goals Bed Mobility Goal Standby Assistance Transfer Goal Standby Assistance,Front Wheeled Walker Gait Goal Standby Assistance,Front Wheel Walker Gait Distance 300 Other Goals 5 DICKSON with L rail, might need SPC on R Days to Meet Goals 2 Frequency of Treatment Frequency Of Treatment Twice a Day Treatment Plan Physical Therapy Treatment Plan Bed Mobility Training,Transfer Training,Gait Training, Therapeutic Exercise,Balance Retraining,Post Op Education, Discharge Planning,Hot or Cold Pack,Neuromuscular Re-ed Recommendations To Nursing Amount of Assist Needed Standby Assistance Discharge Recommendations PT Discharge Recommendations Home with Assistance, Outpatient PT
--- NOTE | 2020-03-25 10:10 | PC.NURSE ---
Day Shift- Discharge summary packet reviewed with pt and his yan at bedside. Reviewed but not limited to S/S of infection, pain management, ambulation with rest periods, follow up appointment already made, prescriptions. No further voiced concerns. Right anterior hip aquacel dressing CDI, denies RLE numbness or tingling. States is ready for discharge. Yan states pt has all his belongings for discharge. Pain controlled with scheduled Tylenol. Pt left unit in no distress at 1009 via wheelchair with CUSTOMER SERVICES SUPERVISOR escort. Yan present to drive pt home.
--- NOTE | 2020-03-25 10:51 | CM.DANOTE ---
Discharge Planning/Care Management DCP: assessment: case received, EMR reviewed. Discussed in Team Rounds. Therapy team reported that pt had done well with PT, would have stair training today and then d/c to home. A d/c order was noted. A check in now shows that pt did d/c to home with driving before Rounding process was completed. Pt here for a scheduled R TOYA/anterior approach. Admission status: [facility] Payer: Medicare and [employer] No d/c concerns were noted by the care team members. CM Discharge Assessment Start: 03/25/20 10:50 Freq: Status: Active Protocol: Document 03/25/20 10:51 ITV (Rec: 03/25/20 10:51 ITV [id number]) Discharge Planning Assessment Advance Directives? Yes Advance Directives on File No History Provided By Medical Record Prior Living Arrangements House Household Members spouse Review Status In Process Pre-Anesthesia Assessment Start: 03/16/20 08:44 Freq: Status: Complete Protocol: Document 03/16/20 08:44 CAB (Rec: 03/16/20 09:09 CAB [id number]) Pre-Anesthesia Assessment Patient Information Reviewed Via Phone Assessment Assessment Completed With Patient Diagnostic Results BMP/CMP,CBC,EKG Comment Labs/EKG @ [facility], COVID 03/21/20 Primary Care Provider Riley Gordon Seen Specialist in Last 12 Months Yes Specialist Seen Social Welfare Research Worker,Orthopedist Primary Language Egyptian Preferred Language Egyptian Batteryman Required No Height 182.88 cm Weight 96.162 kg Body Mass Index (BMI) 28.7 Hearing Ability Normal Visual Impairment No Limitations Visual Assist None Dentition Type Teeth, Natural Present,Dental Implants Barriers to Learning None Other Aids No Hx Anesthesia Reactions No Hx Family Anesthesia Reaction No: Pt is adopted Hx Malignant Hyperthermia No Hx Blood Transfusions No Anesthesia Review Requested No Phone Technician No alcohol intake current alcohol intake frequency 0-2 drinks per day Smoking Status Never smoker Substance Use Type does not use Pain Present Pain Reported Musculoskeletal Symptoms Abnormal Gait,Difficulty Walking,Joint Pain,Myalgias History of Falling (Recent or History of No ) Patient is completely paralyzed or No completely immobile Prosthesis or Orthotic Device Cane Mental Status Oriented to own ability Is patient on oxygen? No Does patient have SAGASTUME/SOB No Hx Sleep Apnea No CPAP/BIPAP use not prescribed Currently Taking a Beta Manuel No Can You Climb a Flight of Stairs Without Yes SOB Hx Chest Pain No Hx SOB No Hx Syncope or Dizziness No Anti-Coagulant Therapy No Has a Agency Owner No Cardiac Testing No Hx Pacemaker/ICD No Pacemaker Rep Required? No Cardiac Clearance Received Not Applicable Diet Type At Home Regular dysphagia No Urinary Catheter Present No Hx Urinary Self Catheterization No Diabetes No Hx Drug Resistant Organism No Presence of External or Internal Medical No Devices Have you had any close contact with No someone diagnosed with COVID-19? Marital Status Lives With spouse Prior Living Arrangements House Number of Floors (Floors) 3 or More Floors Support System Friend(s),Spouse Patient Discharge Plan Description Return Home Feels Safe in Current Environment Yes Been Physically Hurt or Threatened By a No Person in Current Environment Do you have thoughts of harming yourself None or others? Are you currently considering suicide? No Do you have a plan to hurt yourself or No Plan others? Do You Have Any Spiritual Beliefs That No May Affect Your HC Choices? Do You Have Any Cultural Practices That No May Affect Your HC Choices? Who Can We Speak to About Patient's Care Family, friends Identifying Code for Release of Patient Declines to issue Information Health Care Proxy/Next of Kin Shayna () Health Care Proxy or [phone] Emergency Contact Name Shayna () Emergency Contact or [phone] Advance Directives? Yes Advance Directives on File No Power of Septic Tank Service Technician Yes Power of Septic Tank Service Technician Name Shayna () Power of Septic Tank Service Technician or [phone] PAC Instructions Durable medical equipment, Medications to take/avoid, Nasal antibiotic,No ETOH/ petroleum product on skin DOS, NPO,Pre-surgical wash,Sturdy shoes/comfortable clothes,Do not bring valuables and remove jewelry
== END 2020-03-25 10:09 | disposition home or self-care (01) ==
LOC: OR 06:07 → AC 06:07
PROVIDERS: PCP Internal Medicine; Referring Provider Orthopaedic Surgery Adult Reconstructive Orthopaedic Surgery; Visit Provider Orthopaedic Surgery Adult Reconstructive Orthopaedic Surgery
PROC: (CPT 27130; principal; 2020-03-24 07:45)
DX: M16.11 Unilateral primary osteoarthritis, right hip (principal); I10 Essential (primary) hypertension; M25.751 Osteophyte, right hip
CPT/HCPCS: 27130; 36415; 36592; 72170; 73501; 76000; 85014; 85018; 85025; 97116; 97161; C1776; J0690; J1100; J1885; J2250; J2270; J2405; J2704; J3010

== ENCOUNTER → 2021-11-14 10:35 | Outpatient (CLI) | payer MEDICARE, BC, SELFPAY ==
[2020-03-24 11:26] VITALS: BMI 28.6
[2021-11-14 11:27] LABS: Add Manual Diff / Slide Review NO; Basophils Absolute Auto 0 /uL (0-100); Basophils Percent Auto 0.9 % (0-2); Eosinophils Absolute Auto 200 /uL (0-450); Eosinophils Percent Auto 4.4 % (2-4); Hematocrit 37.4 % (41-53); Hemoglobin 12.9 g/dL (13.5-17.5); Lymphocytes Absolute Auto 1200 /uL (1100-4500); Lymphocytes Percent Auto 26.1 % (25-40); Mean Corpuscular HGB Conc 34.4 % (30-36); Mean Corpuscular Hemoglobin 31.1 PG (26-34); Mean Corpuscular Volume 90.5 fL (80-100); Monocytes Absolute Auto 600 /uL (0-900); Monocytes Percent Auto 12.8 % (3-14); Neutrophils Absolute Auto 2600 /uL (1500-7000); Neutrophils Percent Auto 55.8 % (50-75); Platelet Count 227 X10^3/uL (150-400); Red Blood Cell Count 4.14 X10^6/uL (4.5-5.9); Red Cell Distribution Width 12.9 % (11.6-14.8); White Blood Cell Count 4.7 X10^3/uL (4.5-11.0)
[2021-11-14 11:41] LABS: BUN Creatinine Ratio 24.4 (6-22); Blood Urea Nitrogen 21 mg/dL (9-20); Calcium 9.1 mg/dL (8.4-10.2); Carbon Dioxide 29 mmol/L (22-32); Chloride 104 mmol/L (98-107); Estimated Glomerular Filt Rate > 60 mL/min (>60); Glucose 120 mg/dL (80-110); HEMOLYSIS < 15 (0-50); Potassium 4.6 mmol/L (3.4-5.1); Sodium 139 mmol/L (137-145)
[2021-11-14 12:15] LABS: Hemoglobin A1C% w Est Avg Glu 5.9 % (4.0-6.0)
== END ==
PROVIDERS: PCP Internal Medicine; Referring Provider Orthopaedic Surgery; Visit Provider Orthopaedic Surgery
DX: Z01.818 Encounter for other preprocedural examination (principal); R73.9 Hyperglycemia, unspecified; Z01.812 Encounter for preprocedural laboratory examination
CPT/HCPCS: 36415; 80048; 83036; 85025; 93005

== ENCOUNTER → 2021-12-10 10:21 | Outpatient (CLI) | payer MEDICARE, BC, SELFPAY ==
[2020-03-24 11:26] VITALS: BMI 28.6
[2021-12-10 12:05] LABS: COVID19 -Nasal RAPID Negative (Negative)
== END ==
PROVIDERS: PCP Internal Medicine; Referring Provider Orthopaedic Surgery; Visit Provider Orthopaedic Surgery
DX: Z20.822 Contact with and (suspected) exposure to COVID-19 (principal)
CPT/HCPCS: 87635; C9803

== ENCOUNTER 2021-12-12 06:04 | Day surgery (SDC) | payer MEDICARE, BC, SELFPAY ==
[2020-03-24 11:26] VITALS: BMI 28.6
[2021-12-06 07:45] VITALS: BMI 30.5
[2021-12-12] VITALS (16 sets, daily range): BP systolic 107–146; BP diastolic 48–79; PULSE 59–81; RESP 11–18; TEMP 36.1–37; O2SAT 94–99; BMI 29.1
--- NOTE | 2021-12-12 06:00 | DI.RAD.S_ITS ---
PROCEDURE: XR KNEE LT 1TO2V INDICATIONS: Prosthesis placement TECHNIQUE: 2 view(s) of the knee acquired. COMPARISON: [facility], [place], XR KNEE RT 1TO2V, 09/20/2019, 12:25. [facility], [place], XR KNEE ARTHRITIC SERIES BI, 08/20/2021, 11:17. FINDINGS: Bones: Patient is status post knee joint arthroplasty. Hardware components are in expected positions. Visualized bony structures are intact. Soft tissues: Overlying postoperative changes are noted. IMPRESSION: Normal postoperative examination. Dictated by: Mario Quach M.D. on 12/12/2021 at 9:29 Approved by: Mario Quach M.D. on 12/12/2021 at 9:29
[2021-12-12] MEDS: CELECOXIB 200 MG CAPSULE PO (07:00)
[2021-12-12] MEDS: ACETAMINOPHEN 325 MG TABLET 975 MG PO (07:00)
[2021-12-12] MEDS: PREGABALIN 75 MG CAPSULE PO (07:00)
--- NOTE | 2021-12-12 07:17 | PM.PREOP ---
Pre-operative Note COVID-19 COVID-19 status: Negative Result date/Date tested (Pos, Neg/Pending): 12/10/21 Interval Note History & Physical reviewed/Exam performed by Physician: Yes Changes to H&P: No
[2021-12-12] MEDS: LACTATED RINGERS 1,000 ML 42 ML IV ×2 (07:37→09:46)
[2021-12-12] MEDS: VANCOMYCIN 1,000 MG/200 ML PIGGYBACK 200 MG IV (07:37)
[2021-12-12] MEDS: CEFAZOLIN 2 GM/20 ML SYRINGE IV (08:10)
[2021-12-12] MEDS: MORPHINE 4 MG/ML INJ INJ (08:30)
[2021-12-12] MEDS: TRANEXAMIC ACID 1,000 MG VIAL 1000 MG INJ ×2 (08:30→09:29)
[2021-12-12] MEDS: BUPIVACAINE 0.25% (PF) 60 ML, EPINEPHrine 0.3 MG INJ (08:30)
--- NOTE | 2021-12-12 08:35 | SUR.OPER ---
Supine on padded OR bed, head on pillow, arms secured on padded arm boards at <90 degrees abduction, legs uncrossed, safety belt at ABDOMEN, RIGHT LEG SCURE TO BED WITH TAPE AND LEFT LEG IN LEG DIAZ
[2021-12-12] MEDS: BUPIVACAINE LIPOSOME 266 MG/20 ML VIAL INJ (09:16)
--- NOTE | 2021-12-12 09:49 | P.OP_ITS ---
Operative Date/Time/Diagnoses Date of procedure: 12/12/21 Time of procedure: 09:49 Pre-op diagnosis: Left knee osteoarthritis Post-op diagnosis: same Procedure & Clinicians Procedure: Left total knee replacement Same procedure as scheduled: Yes Indications: The patient has had progressively worsening left knee pain with radiographic changes consistent with arthritis. Non-operative management has failed and the patient has requested total knee replacement. The risks, benefits and alternatives to surgery were discussed with the patient prior to proceeding. Risks discussed included, but were not limited to, failure to relieve pain, stiffness, infection, nerve damage, deep venous thrombosis, pulmonary embolism, stroke, coma, heart attack, permanent paralysis and , as well as the potential need for eventual revision of the prosthetic. Surgeon: Stevie Duncan Paint Crew Supervisor: Josy Hernandez Click Yes if Unassisted: No Anesthesia Type: General, Spinal, Peripheral nerve block and Local Operative Notes Findings: Severe lateral and moderate medial and patellofemoral osteoarthritic change Closure Type: primary Specimen(s): none sent Prosthetic devices, grafts, tissues, transplants, or devices: Implants used in this procedure were manufactured by the [employer] and included the BCS II Journey total knee replacement with a size 8 left Oxinium femoral component, 7 left non porous tibial base plate, 9 mm cross- linked tibial insert and a 38 mm oval Joan II patella. Applied: implant(s) Estimated Blood Loss (mL): 25 Blood products transfused: none Tourniquet time (min): 54 Procedure in detail: The patient was seen in the pre-operative area, where the left knee was identified as the operative site and this was marked with my initials. The patient received pre-operative antibiotics, and was taken to the operating room and placed on the operative table in the supine position. After satisfactory anesthesia, a chief of staff doctor out was performed. The left leg was encircled with a tourniquet about the proximal thigh, and the leg was prepared from the toes to the tourniquet with ChloroPrep in the usual fashion and draped through sterile drapes. The leg was elevated and exsanguinated with Eschmark bandage and the tourniquet inflated to 250 mmHg pressure. The knee was approached through an approximately 18 cm incision centered over the patella and carried into the knee through a medial parapatellar arthrotomy. The anterior osteophytes and soft tissues were removed. The rotational landmarks of Pillo's line and the transepicondylar axis were marked on the femur with electrocautery, and intramedullary guide holes for the femur and tibia were created. The distal femoral cut was made in 6 degrees of valgus using the intramedullary guide at a +1 cut setting due to a mild flexion contracture. The proximal tibial cut was then made using the intramedullary guide, taking 7 mm of bone off the less involved medial side. The extension gap was checked and the rotation of the femoral component confirmed with the gap balancing blocks. The anterior, posterior and chamfer cuts were then made. The posterior osteophytes and soft tissues were then removed. The posterior capsule was injected with part of a mixture of 40 ml 0.25% Marcaine mixed with 20 ml Exparel and 4 mg of morphine for post-operative pain control. The remainder of this mixture was injected into the capsule and subcutaneous tissues during cement curing. The tibia was prepared with the rotation set by an extra medullary guide. Trial tibial and femoral components were then placed and the intercondylar notch cut through the femoral trial. Range of motion was 0-135 degrees, with good stability throughout the range. The patella was then cut to accommodate the patellar prosthetic. There was no need for a lateral release. The trials were then removed, and the femoral hole plugged with a bone plug. The bone was prepared with pulsatile lavage, and dried with a sponge. Cement was applied and the final prosthetics placed. Excess cement was removed during and after cement curing. After confirming there was no extruded cement posteriorly, the final tibial insert was placed. The knee was copiously irrigated and the tourniquet deflated. Hemostasis was obtained. The capsule was closed with interrupted # 2 polyester sutures. The subcutaneous layer was closed with 3-0 Vicryl, and the skin with a running 3-0 V-Lock suture and Dermabond. An Aquacel Ag dressing was applied and the patient was taken to recovery having tolerated t he procedure well. Complications: none Post-operative Condition: stable Disposition: PACU Plan for aftercare: The patient will be maintained on a standard total knee replacement protocol with weight bearing as tolerated. The patient will receive aspirin and sequential compression devices for DVT prophylaxis. The patient will be discharged home when safe for the home environment.
--- NOTE | 2021-12-12 10:14 | SUR.PHASEI ---
Telemetry at bedside SR with normal RI QRS and sinus arrhythmia per baseline pre-op EKG. No change.
--- NOTE | 2021-12-12 10:45 | SUR.PHASEI ---
Patient transferred to room 202 in bed by this RN with 1 belongings bag and cell phone. Pt awake, alert, at bedside in room. SBAR report to [facility] RN with update at bedside. Bed locked in low position. Call light in reach.
[2021-12-12] MEDS: LACTATED RINGERS 1,000 ML 100 ML IV (11:17)
[2021-12-12] MEDS: ACETAMINOPHEN 325 MG TABLET 650 MG PO ×2 (11:18→18:22)
--- NOTE | 2021-12-12 13:30 | PT.IIE ---
Current Diagnoses Unilateral primary osteoarthritis, left knee (12/12/21) Surgery Performed Operation Date: 12/12/21 07:45 Actual Procedures p Total Knee Arthroplasty(Left) - Stevie Duncan MD Medical History (Last Updated 09/16/19 @ 13:41 by Lee Ann Sun RN) Actinic keratosis HTN (hypertension) Osteoarthritis Skin cancer Physical Therapy Inpatient Evaluation/Re-Eval M1 PT/OT-IP Prior Functional Status Start: 12/12/21 14:44 Freq: NEEDED Status: Active Protocol: Document 12/12/21 13:30 AB (Rec: 12/12/21 14:53 AB [id number]) Medical Review Prior Functional Status Medical History Reviewed Yes Communication able to make needs known Mobility and Gait pt stated that he is independent with all mobilities and ambulation without AD Social History Household Members spouse Living Arrangements House Number of Floors (Floors) 3 or More Floors Number of Stairs To Enter/Railing? 4 steps wide rails to enter the house 14 steps R rail first half and then L rail on 2nd half to get to bedroom level Home Environment Standard Height Toilet,Walk in Shower Home Equipment Front Wheel Walker,Straight Cane,Hand Held Shower,Grab Bars In Shower M2 PT-IP Current Condition Start: 12/12/21 14:44 Freq: NEEDED Status: Active Protocol: Document 12/12/21 13:30 AB (Rec: 12/12/21 14:53 AB [email or web address]) Physical Therapy Current Condition Current Condition Evaluation Date 12/12/21 Treatment Diagnosis s/p L TKA; difficulty in walking Onset Date 12/12/21 M3 PT-IP Subjective Start: 12/12/21 14:44 Freq: NEEDED Status: Active Protocol: Document 12/12/21 13:30 AB (Rec: 12/12/21 14:53 AB [email or web address]) Subjective Physical Therapy Visit Type Type Initial Evaluation Visit Start Time 13:30 Visit Stop Time 14:00 Total Visit Minutes 30 Number of PARTS PULLER Visits 0 Physical Therapy Visit Comments Patient Comments agreeable to do PT Therapy Pain Assessment Pain Present Pain Present Denied Pain M4 PT-IP Mobility and Gait Start: 12/12/21 14:44 Freq: NEEDED Status: Active Protocol: Document 12/12/21 13:30 AB (Rec: 12/12/21 14:53 AB [email or web address]) PT-Bed Mobility Assessment Supine to Sit Supine to Sit Independent Sit to Supine Sit to Supine Independent PT-Transfer Assessment Sit to and From Stand Sit to and from Stand Standby Assistance,1 Person Assistance Equipment Transfer Assistive Device Gait Belt,Front Wheeled Walker Orthotic/Prosthetic Devices or Brace: No Transfers Transfer Destination Bed,Chair Transfer Technique ambulated Transfer Ability Level of Assist Standby Assistance Comments Mobility Comments pt sitting on chair. completed sit to stand SBA. requested to use the toilet and ambulated to the toilet using FWW SBA. able to stand with FWW for support SBA. ambulated towards the sink using FWW SBA. ambulated to EOB SBA using FWW and demonstrated bed mobility supine to sit independent. pt agreed to do stairs. completed sit to stand SBA and ambulated ~ 100 ft using FWW SBA. completed up/ down steps using 1 rail + SPC SBA. pt ambulated back to his room using FWW SBA and sat on chair. positioned on chair. ice pack provided. call light and table placed within reach . Gait Assessment Gait Gait Assistance Required: Standby Assistance Distance (Feet) 100 Able to Maintain Weight Bearing Status Yes During Gait Assistive Devices Assistive Device Gait Belt,Front Wheeled Walker Orthotic/Prosthetic Devices or Brace: No Gait Deviations General Gait Pattern Decreased Stride Length Factors Limiting Gait Function Factors Limiting Gait Function Decreased Activity Tolerance, Decreased Strength,Limited Range of Motion,Poor Balance, Poor Safety Awareness Stair Climbing Assessment Evaluation Level of Assist On Stairs Standby Assistance Devices Stair Climbing Assistive Devices Straight Cane,Left Railing, Right Railing Technique/Endurance Stair Climbing Direction Ascend and Descend Stair Climbing Technique Step to Step Number of Steps Climbed 3 Query Text: Stair Climbing Set # Repetitions (reps) 3 PT-Balance Assessment Sitting Balance and Reactions Static Sitting Balance Ability Normal Dynamic Sitting Balance Ability Normal Standing Balance and Reactions Static Standing Balance Ability Good Dynamic Standing Balance Ability Fair Device Used FWW M5 PT-IP Objective Assessments Start: 12/12/21 14:44 Freq: NEEDED Status: Active Protocol: Document 12/12/21 13:30 AB (Rec: 12/12/21 14:53 AB [email or web address]) Orientation Orientation/Cognition Level of Alertness Alert Orientation Name,Age,Birthday,Month,Date, Year,Day of Week,Place, Situation Language Function Ability No Deficits Noted Safety Awareness Decreased Safety Awareness Memory Description No Deficits Noted Strength Lower Extremity Strength Hip 4/5 Knee 4-/5 Coordination Assessment Gross Coordination Gross Coordination WNL Sensation Assessment Sensation Gross Sensation WNL Muscle Tone Muscle Tone WNL Yes M6 PT-IP Treatment Start: 12/12/21 14:44 Freq: NEEDED Status: Active Protocol: Document 12/12/21 13:30 AB (Rec: 12/12/21 14:53 AB [email or web address]) Physical Therapy Treatment Education Education Provided Precautions,Weight Bearing Status,Post-Op Packet,Safety M7 PT-IP Assessment and Plan Start: 12/12/21 14:44 Freq: NEEDED Status: Active Protocol: Document 12/12/21 13:30 AB (Rec: 12/12/21 14:53 AB [email or web address]) PT Summary Assessment and Plan Potential Rehabilitation Potential Good Status of Condition at Evaluation Stable Summary Impairments Pain,ROM,Strength,Balance, Coordination,Sensation,Tone, Cognition,Bed Mobility, Transfers,Gait,Activity Tolerance Assessment Summary pt requiring SBA with mobility using FWW. plans to go home and spouse to assist him. pt does not c/o pain at this time but just had surgery this morning. pt is hoping to go home today. pt is also set up for out pt PT. pt may go home when medically stable. Goals Transfer Goal Independent,Front Wheeled Walker Gait Goal Independent,Front Wheel Walker Gait Distance 300 Other Goals up/down 14 steps 1 rail + SPC mod I Days to Meet Goals 5 Frequency of Treatment Frequency Of Treatment Twice a Day Treatment Plan Physical Therapy Treatment Plan Bed Mobility Training,Transfer Training,Gait Training, Therapeutic Exercise,Balance Retraining,Post Op Education, Discharge Planning,Hot or Cold Pack,Neuromuscular Re-ed, Coordination Retraining,Manual Therapy Weight Bearing Status Weight Bearing Status Weight Bear as Tolerated Allowed Weight Bearing Amount (enter % LLE WBAT or #) (%) Recommendations To Nursing Amount of Assist Needed Standby Assistance Discharge Recommendations PT Discharge Recommendations Home with Assistance, Outpatient PT Transportation Needs at Discharge Private Vehicle
[2021-12-12] MEDS: IBUPROFEN 400 MG TABLET PO ×3 (14:23→20:17)
--- NOTE | 2021-12-12 18:26 | PC.NURSE ---
pain 2/10, controlled with advil and tylenol. sba with ffw. passed PT. drinking plenty of fluids. voiding without difficulty. cms+. shruthi cdi
[2021-12-12] MEDS: ASPIRIN EC 81 MG TABLET PO (20:17)
[2021-12-12] MEDS: DOCUSATE 100 MG CAPSULE PO (20:17)
[2021-12-13 03:07] VITALS: BP 106/57; PULSE 69; RESP 16; TEMP 36.4; O2SAT 94
[2021-12-13 06:01] LABS: Hematocrit 31.6 % (41-53); Hemoglobin 10.7 g/dL (13.5-17.5)
--- NOTE | 2021-12-13 07:37 | PM.DS.1 ---
History of Present Illness History of Present Illness Date Patient Seen: 12/13/21 Time Patient Seen: 07:37 Chief complaint: LEFT TKA *OBS* Narrative: The history and physical are contained in the chart previously completed note. Please refer to that note for this information. Discharge Providers Provider Date of admission: December 12, 2021 Discharge Date: 12/13/21 Primary care physician: Riley Gordon MD Consults: 12/12/21 10:37 Consult to Discharge Planning Routine Comment: Consult to Physical Therapy Evaluate & Treat Comment: Physician Instructions: postop TKA protocol Discharge provider: Stevie Duncan MD Summary Hospital Course Discharge Diagnosis: 1. Left knee osteoarthritis 2. Post hemorrhagic anemia Hospital Course: The patient was admitted to the hospital and taken directly to the operating room on December 12, 2021. He underwent a primary left total knee replacement without complications. Was stable postoperatively and ready for discharge home on postoperative day 1. He had an anticipated post hemorrhagic anemia which should resolve without specific intervention. Status at Discharge Cognitive/behavioral status at discharge: at baseline, oriented Functional status at discharge: uses cane/walker Overall status at discharge: patient is progressing back to baseline Time Spent with Patient Time spent: Less than 30 minutes Exam Vital Signs (past 8 hours): - 12/13/21 03:07 Temperature 97.6 F Pulse Rate 69 Respiratory Rate 16 Blood Pressure 106/57 L Pulse Oximetry 94 Oxygen Flow Rate 0 Oxygen Delivery Method Room Air Oxygen Flow Rate 0 Narrative Exam Narrative: Left knee wound is dressed with no drainage on the bandage. Calf is soft. Light touch and motion are intact in the left lower extremity. Objective Labs Result Diagrams: 12/13/21 05:50 Labs: Laboratory Results - last 24 hr 12/13/21 05:50 Hgb 10.7 L Hct 31.6 L PFSH Medical History (Updated 09/16/19 @ 13:41 by Lee Ann Sun RN) Actinic keratosis HTN (hypertension) Osteoarthritis Skin cancer Surgical History History of arthroplasty of right knee (09/20/19) History of nasal surgery History of total right hip arthroplasty (03/24/20) Hx of arthroscopy of left knee Hx of LASIK Hx of repair of left rotator cuff Social History household members: spouse Smoking Status: Never smoker alcohol intake: current Discharge Assessment & Plan Assessment and Plan Assessment: Stable postoperative day 1 status post left total knee replacement without complications. Mild post hemorrhagic anemia. Plan of Treatment: Discharged home. Follow up in my office in 10-14 days. He has oxycodone from a prior admission if necessary. He has been instructed on the use of ibuprofen and acetaminophen for additional pain control and the use of low-dose aspirin for DVT prophylaxis. Discharge Plan Discharge Plan Patient Disposition: Home Discharge orders & Medications Discharge Orders: Discharge (Order); Ordered 12/13/21 Ordered By: Stevie Duncan Prescriptions: New acetaminophen 325 mg Tablet 650 mg PO Q6HR 30 Days Qty: 120 0RF aspirin 81 mg Tablet,Delayed Release (Dr/Ec) 81 mg PO BID 42 Days Qty: 84 0RF ibuprofen 400 mg Tablet 400 mg PO Q4HR 30 Days Qty: 120 0RF oxycodone 5 mg Tablet 5 mg PO Q4H PRN (Reason: Pain, Moderate (4-6)) 10 Days Qty: 40 0RF Continued losartan 25 mg Tablet 50 mg PO DAILY hydrochlorothiazide 12.5 mg Tablet 12.5 mg PO DAILY Follow up/Referrals: Riley Gordon MD [Primary Care Provider] - Stevie Duncan MD [Physician] - 2 Weeks Diet/Activity/Treatments Diet: Diet as Tolerated and Regular Activity: You may bear weight as tolerated on your left leg. Cold/Heat Therapy: You may apply ice for 15 minutes every hour as needed to the left knee for pain control. Skin/Wound/Dressing Care Report to your healthcare provider any signs of infection, such as:: chills, fever, night sweats, increased pain, unusual drainage and unusual redness Dressing: You may remove the Malcolm wrap 3 days after surgery and shower normally. Leave the deeper dressing in place until follow-up. If the central strip of the deeper dressing becomes saturated with either water or blood, please call the office to have it evaluated. Visit Report/Discharge Packet Instructions: DI for Knee Replacement Stand Alone Forms: Surgery Discharge Discharge Data Primary Care Provider: Riley Gordon Attending Provider: Stevie Duncan
--- NOTE | 2021-12-13 08:56 | PC.NURSE ---
late note: pt refused his morning meds. dc instructions and paper work provided.
--- NOTE | 2021-12-13 14:20 | CM.IDA ---
Initial DCP Assessment Note Pt is a 71 yo male, resident of [place], now POD#1 from Left uni knee surgery by Dr Duncan PCP: Riley Gordon Payer: PETRA/KAYLAH Smith Reviewed chart, pt discussed in multidisciplinary rounds this morning. Therapy has cleared pt for return home w/family to assist and pt has planned for home, DC order from Ortho has already been initiated this morning. No needs identified today from DC planning team before patient discharged to the care of his . KIMBERLY Reis
== END 2021-12-13 08:14 | disposition home or self-care (01) ==
LOC: OR 06:06 → AC 06:06
PROVIDERS: PCP Internal Medicine; Referring Provider Internal Medicine; Visit Provider Orthopaedic Surgery
PROC: 0SRD0JZ Replacement of Left Knee Joint with Synthetic Substitute, Open Approach (ICD-10-PCS; CPT 27447; principal; 2021-12-12 07:45)
DX: M17.12 Unilateral primary osteoarthritis, left knee (principal); I10 Essential (primary) hypertension
CPT/HCPCS: 27447; 36415; 64450; 73560; 85014; 85018; 97161; C1776; C1713; C9290; J0171; J0690; J2270; J2704